=== PATIENT | male | born 1970 | race Caucasian/White ===

== ENCOUNTER → 2018-12-31 11:44 | Outpatient (CLI) | payer MEDICARE ==
[2018-12-31 12:49] LABS: AMYLASE - SERUM 63 U/L (25-115); LIPASE 109 U/L (73-393)
== END | disposition home or self-care (01) ==
LOC: D.LAB 11:44
PROVIDERS: ATTEND Internal Medicine Gastroenterology
DX: R10.12 Left upper quadrant pain (principal); K21.9 Gastro-esophageal reflux disease without esophagitis; R19.4 Change in bowel habit; R63.4 Abnormal weight loss